=== PATIENT | female | born 1980 | race African-American/Black ===

== ENCOUNTER 2016-12-19 19:21 | Emergency (ER) | payer OTHER ==
[~2016-12-19] VITALS: Ht 167.6 cm; Wt 80.0 kg
[2016-12-19] MEDS ORDERED: FLUORESCEIN OPHTH 1 MG STRIP OS ONE (21:15)
[2016-12-19] MEDS ORDERED: CLEO300C2 PO (21:37)
[2016-12-19] MEDS ORDERED: ACYC800T PO (21:37)
[2016-12-19] MEDS ORDERED: ACYCLOVIR 200 MG CAPSULE PO ONE (21:45)
[2016-12-19] MEDS ORDERED: CLINDAMYCIN 150 MG CAP PO ONE (21:45)
[2016-12-19 21:51] VITALS: BP 129/83
== END 2016-12-19 21:53 | disposition home or self-care (01) ==
LOC: M ED 20:47
DX: H57.8 Other specified disorders of eye and adnexa (principal)
CPT/HCPCS: 99282; G0463

== ENCOUNTER 2018-11-15 11:10 | Emergency (ER) | payer OTHER ==
[~2018-11-15] VITALS: Ht 165.1 cm; Wt 81.0 kg
[~2018-11-15 11:10] MED LIST: ACYC800T PO; CLEO300C2 PO
[2018-11-15] MEDS ORDERED: ADDE25CA PO (13:12)
--- NOTE | 2018-11-15 13:22 | REP ---
CHEST, TWO VIEWS: There is no evidence of acute infiltrate. No pleural effusion is seen. The heart is normal in size. The mediastinal silhouette is unremarkable. The visualized osseous structures are intact. IMPRESSION: No acute pulmonary disease. Electronically Signed by Jhon Flores MD 11/16/2018 09:23 A
[2018-11-15 14:09] LABS: INFLUENZA A AMPLIFICATION NEGATIVE (NEGATIVE); INFLUENZA B AMPLIFICATION NEGATIVE (NEGATIVE)
[2018-11-15] MEDS ORDERED: BENZ200C70 PO (14:24)
[2018-11-15] MEDS ORDERED: AFRI0.058 (14:24)
[2018-11-15 14:28] VITALS: BP 136/63
== END 2018-11-15 14:33 | disposition home or self-care (01) ==
LOC: M ED 11:10
DX: J06.9 Acute upper respiratory infection, unspecified (principal)